=== PATIENT | male | born 1970 | race American Indian/Alaskan Native ===

== ENCOUNTER 2019-07-02 03:02 | Emergency (ER) | payer SELFPAY ==
[2019-07-02] MEDS ORDERED: cloNIDine 0.2 MG TAB ONE (03:24)
[2019-07-02] MEDS ORDERED: cloNIDine 0.2 MG TAB PO ONE (03:25)
--- NOTE | 2019-07-02 04:06 | XRay Report ---
CHEST 1 VIEW, 07/02/2019 3:56 AM CLINICAL INFORMATION/INDICATION: Chest pain COMPARISON: None FINDINGS: SUPPORT DEVICES: None. HEART: The cardiac silhouette is normal in size. LUNGS/PLEURA: The lungs are clear of focal airspace disease or significant pleural effusion. ADDITIONAL FINDINGS: No additional acute findings. IMPRESSION: 1. No evidence of acute cardiopulmonary process. Signer Name: Soo Long MD Signed: 07/02/2019 4:02 AM Workstation Name: [id number]
[2019-07-02 04:13] LABS: Basophils # (Auto) 0.1 K/mm3 (0.0-0.1); Basophils % (Auto) 1.1 % (0.0-1.8); Eosinophils # (Auto) 0.3 K/mm3 (0.0-0.4); Eosinophils % (Auto) 5.3 % (0.0-4.3); Hematocrit 38.6 % (35.5-45.6); Hemoglobin 12.3 gm/dl (11.8-15.2); Lymphocytes # (Auto) 2.4 K/mm3 (1.2-5.4); Lymphocytes % (Auto) 45.8 % (13.4-35.0); Mean Corpuscular HGB Conc 32 % (32-34); Mean Corpuscular Volume 82 fl (84-94); Monocytes # (Auto) 0.6 K/mm3 (0.0-0.8); Monocytes % (Auto) 10.9 % (0.0-7.3); Platelet Count 291 K/mm3 (140-440); Red Blood Count 4.71 M/mm3 (3.65-5.03); Red Cell Distribution Width 13.5 % (13.2-15.2)
[2019-07-02 04:35] LABS: BUN/Creatinine Ratio 10; Blood Urea Nitrogen 9 mg/dL (9-20); Calcium 9.3 mg/dL (8.4-10.2); Hemolysis Index 7
--- NOTE | 2019-07-02 04:44 | Cat Scan Report ---
Examination: CT of the head without contrast Clinical information: Headache Comparison: None Technical: Multiple axial CT images of the head were obtained without intravenous contrast. Sagittal and coronal reformats were obtained. All CTs at this facility utilize dose reduction techniques inc luding automated exposure control, iterative reconstruction and weight based dosing when appropriate to reduce patient radiation dose to as low as reasonable achievable. Findings: There is no CT evidence of acute intracranial hemorrhage or large territorial infarct. The ventricular system appears normal in size. No extra-axial fluid collections are identified. Evaluation of bony structures demonstrates no evidence of acute bony abnormality. The visualized para nasal sinuses and mastoid air cells appear clear. Impression: 1. No CT evidence of acute intracranial process. Signer Name: Soo Long MD Signed: 07/02/2019 4:40 AM Workstation Name: [id number]
[2019-07-02] MEDS ORDERED: ASPIRIN 325 MG TAB PO ONE (06:17)
--- NOTE | 2019-07-02 06:21 | Emergency Department Report ---
ED Chest Pain HPI - General Chief Complaint: High BP Stated Complaint: BLOOD PRESSURE, CHEST PAIN Time Seen by Provider: 07/02/19 06:08 Source: patient Mode of arrival: Ambulatory Limitations: No Limitations - History of Present Illness Initial Comments: 49-year-old male with a past medical history of hypertension presents to the hospital complains of uncontrolled blood pressure, headache, and chest pain. Patient been noncompliant with his clonidine 0.2 mg twice a day for the past 3 days because he was unable to schedule an appointment with his PMD in [place] because his doctor was on vacation. Last night while working patient developed a 7/10 headache on the top of his head and felt dizzy some mild blurred vision. He denies nausea, vomiting, focal weakness, focal numbness, or neck pain. While driving to the hospital he developed mid sharp chest pain that is intermittent and has now resolved. He denies associated shortness of breath, nausea, vomiting, or diaphoresis with chest pain. Patient received clonidine 0.2 mg prior to my evaluation was some reduction in blood pressure. Headache is now reported 4/10 in intensity and chest pain has resolved. Patient has not received a stress test in the past. He does not smoke cigarettes. His mother has CAD/pacemaker. PMD: Dr. Jones in [place] Severity scale (0 -10): 3 - Related Data Previous Rx's Medication Instructions Recorded Last Taken Type Cetirizine HCl [Zyrtec] 10 mg PO QDAY 14 Days #14 tablet 06/29/18 Unknown Rx Oxymetazoline 0.05% [Afrin] 1 spray NS BID PRN #1 bottle 06/29/18 Unknown Rx Aspirin 325 mg PO QDAY #30 tablet 07/02/19 Unknown Rx cloNIDine [Catapres] 0.2 mg PO BID #60 tablet 07/02/19 Unknown Rx Allergies Allergy/AdvReac Type Severity Reaction Status Date / Time No Known Allergies Allergy Verified 07/02/19 03:24 Heart Score - HEART Score History: Slightly suspicious EKG: Non-specific Age: 45-65 Risk factors: 1-2 risk factors Troponin: < normal limit HEART Score: 3 - Critical Actions Critical Actions: 0-3 pts:0.9-1.7%risk of adverse cardiac event.Candidate for discharge ED Review of Systems ROS: Stated complaint: BLOOD PRESSURE, CHEST PAIN Other details as noted in HPI Comment: All other systems reviewed and negative ED Past Medical Hx - Past Medical History Previous Medical History?: Yes Hx Hypertension: Yes Hx Seizures: Yes - Surgical History Past Surgical History?: Yes Additional Surgical History: "stomach surgery" - Social History Smoking Status: Never Smoker - Medications Home Medications: Home Medications Medication Instructions Recorded Confirmed Last Taken Type Cetirizine HCl [Zyrtec] 10 mg PO QDAY 14 Days #14 tablet 06/29/18 Unknown Rx Oxymetazoline 0.05% [Afrin] 1 spray NS BID PRN #1 bottle 06/29/18 Unknown Rx Aspirin 325 mg PO QDAY #30 tablet 07/02/19 Unknown Rx cloNIDine [Catapres] 0.2 mg PO BID #60 tablet 07/02/19 Unknown Rx ED Physical Exam - General Limitations: No Limitations - Other Other exam information: General: No acute distress Head: Atraumatic Eyes: normal appearance ENT: Moist mucous membranes Neck: Normal appearance, no midline tenderness Chest: Clear to auscultation bilaterally, chest wall nontender CV: Regular rate and rhythm Abdomen: Soft, normal bowel sounds, nontender, nondistended, no rebound or guarding Back: Normal inspection Extremity: Normal inspection, full range of motion, no calf tenderness or leg edema Neuro: Alert O x 3, no facial asymmetry, speech clear, no gross motor sensory deficit, [id number]-[id number] function intact, gait steady Psych: Appropriate behavior Skin: No rash ED Course Vital Signs 07/02/19 07/02/19 07/02/19 03:06 03:28 04:16 Temperature 97.7 F Pulse Rate 75 75 66 Respiratory 18 20 Rate Blood Pressure 174/124 174/124 Blood Pressure 150/105 [Left] O2 Sat by Pulse 97 99 Oximetry 07/02/19 07/02/19 07/02/19 06:36 07:01 07:15 Temperature 98.3 F Pulse Rate 58 L 55 L 64 Respiratory 16 13 14 Rate Blood Pressure 153/97 153/97 Blood Pressure 153/97 [Left] O2 Sat by Pulse 95 98 98 Oximetry KATE score - Kate Score Age > 65: (0) No Aspirin use within the Past 7 Days: (0) No 3 or more CAD Risk Factors: (0) No 2 or more Angina events in past 24 hrs: (0) No Known CAD with more than 50% Stenosis: (0) No Elevated Cardiac Markers: (0) No ST Deviation Greater than 0.5mm: (0) No KATE Score: 0 ED Medical Decision Making - Lab Data Result diagrams: 07/02/19 03:58 07/02/19 03:58 Lab Results 07/02/19 07/02/19 07/02/19 Range/Units 03:58 03:58 07:07 WBC 5.3 (4.5-11.0) K/mm3 RBC 4.71 (3.65-5.03) M/mm3 Hgb 12.3 (11.8-15.2) gm/dl Hct 38.6 (35.5-45.6) % MCV 82 L (84-94) fl MCH 26 L (28-32) pg MCHC 32 (32-34) % RDW 13.5 (13.2-15.2) % Plt Count 291 (140-440) K/mm3 Lymph % (Auto) 45.8 H (13.4-35.0) % [place] % (Auto) 10.9 H (0.0-7.3) % Eos % (Auto) 5.3 H (0.0-4.3) % Baso % (Auto) 1.1 (0.0-1.8) % Lymph # 2.4 (1.2-5.4) K/mm3 [place] # 0.6 (0.0-0.8) K/mm3 Eos # 0.3 (0.0-0.4) K/mm3 Baso # 0.1 (0.0-0.1) K/mm3 Seg Neutrophils % 36.9 L (40.0-70.0) % Seg Neutrophils # 2.0 (1.8-7.7) K/mm3 Sodium 140 (137-145) mmol/L Potassium 3.8 (3.6-5.0) mmol/L Chloride 101.2 (98-107) mmol/L Carbon Dioxide 25 (22-30) mmol/L Anion Gap 18 mmol/L BUN 9 (9-20) mg/dL Creatinine 0.9 (0.8-1.5) mg/dL Estimated GFR > 60 ml/min BUN/Creatinine Ratio 10 % Glucose 106 H (75-100) mg/dL Calcium 9.3 (8.4-10.2) mg/dL Troponin T < 0.010 < 0.010 (0.00-0.029) ng/mL - EKG Data -: EKG Interpreted by Me EKG shows normal: sinus rhythm, ST-T waves (no stemi) Rate: normal - EKG Data When compared to previous EKG there are: previous EKG unavailable 07/02/19 06:29 repeat ekg without acute changes - Radiology Data Radiology results: report reviewed ct head: naf cxr: naf - Medical Decision Making With uncontrolled hypertension distress secondary to the patient upon initial hypotension secondary to medication noncompliance. Patient received clonidine 0.2 mg with reduction in blood pressure and improvement in symptoms. Chest pain is atypical and resolved and patient has a low heart and KATE score, negative troponin 2, and EKG unchanged 2 with resolution of chest pain. CT head chest x-ray labs unremarkable. Follow up advised with PMD and local options will be provided for follow-up. Patient will receive a prescription for clonidine cardiology outpt f/u for stress testing will also be provided. - Differential Diagnosis hypertensive emergency/urgency, [place], unstable angina, ICh Critical Care Time: No Critical care attestation.: If time is entered above; I have spent that time in minutes in the direct care of this critically ill patient, excluding procedure time. ED Disposition Clinical Impression: Uncontrolled hypertension, Noncompliance with medication regimen, Headache, Chest pain Disposition: - TO HOME OR SELFCARE Is pt being admited?: No Does the pt Need Aspirin: No Condition: Stable Instructions: Chest Pain (ED), Acute Headache (ED), Hypertension (ED) Additional Instructions: Take the medication as prescribed. Follow-up with your doctor or doctor/clinic provided. Return if symptoms worsen as indicated by your discharge instructions. Prescriptions: Aspirin 325 mg PO QDAY #30 tablet cloNIDine [Catapres] 0.2 mg PO BID #60 tablet Referrals: FLAQUITO SOLORZANO MD [Staff Physician] - 3-5 Days (primary care doctor ) ALFONSO COSTA MD [Staff Physician] - 2-3 Days (heart doctor ) Time of Disposition: 07:57
[2019-07-02 08:04] VITALS: BP 150/97
== END 2019-07-02 08:28 | disposition home or self-care (01) ==
LOC: ED 03:02
DX: R51 Headache (principal); R07.89 Other chest pain; I10 Essential (primary) hypertension; Z91.14 Patient's other noncompliance with medication regimen; Z98.890 Other specified postprocedural states; Z79.899 Other long term (current) drug therapy
CPT/HCPCS: 36415; 70450; 71045; 80048; 84484; 85025; 93005; 93010

== ENCOUNTER 2019-09-13 22:41 | Emergency (ER) | payer SELFPAY ==
[2019-09-13 23:00] VITALS: BP 140/86
[2019-09-14] MEDS ORDERED: ACETAMINOPHEN 325 MG TAB PO ONE (01:34)
== END 2019-09-13 23:15 | disposition left against medical advice (07) ==
LOC: ED 22:41
DX: R42 Dizziness and giddiness (principal); Z53.21 Procedure and treatment not carried out due to patient leaving prior to being seen by health care provider